=== PATIENT | male | born 1960 | race African-American/Black ===

== ENCOUNTER 2023-04-26 12:07 | Inpatient (IN) | payer OTHER ==
[2023-04-26 12:45] VITALS: BMI 25.9
[2023-04-26] MEDS ORDERED: BENZOCAINE/MENTHOL (CHLORASEPTIC ) LOZENGE MM PRN (14:35)
[2023-04-26] MEDS ORDERED: POLYETHYLENE GLYCOL (HEALTHYLAX) 3350 17 GM PACKET PO PRN (14:35)
[2023-04-26] MEDS ORDERED: IBUPROFEN 400 MG TABLET (FP) PO PRN (14:35)
[2023-04-26] MEDS ORDERED: MAGNESIUM HYDROX 2400MG/30ML ORAL SUSPENSION 30 ML CUP PO PRN (14:35)
[2023-04-26] MEDS ORDERED: BENZONATATE 200 MG CAPSULE PO PRN (14:35)
[2023-04-26] MEDS ORDERED: BISMUTH SUBSALICYLATE 262 MG/15 ML BTL PO PRN (14:35)
[2023-04-26] MEDS ORDERED: ACETAMINOPHEN 325 MG TABLET (FP) PO PRN (14:35)
[2023-04-26] MEDS ORDERED: ONDANSETRON *ODT* 4 MG TABLET SL PRN (14:35)
[2023-04-26] MEDS ORDERED: guaiFENesin 600 MG TABLET.ER (FP) PO PRN (14:35)
[2023-04-26] MEDS ORDERED: DICYCLOMINE HCL 10 MG CAPSULE PO PRN (14:35)
[2023-04-26] MEDS ORDERED: P-EPHED 60MG/TRIPROLIDI 2.5MG TABLET PO PRN (14:35)
[2023-04-26] MEDS ORDERED: LOPERAMIDE HCL 2 MG CAPSULE PO PRN (14:35)
[2023-04-26] MEDS: hydrOXYzine PAMOATE 25 MG CAPSULE (FP) PO PRN (15:27)
[2023-04-26] MEDS: THIAMINE HCL 100 MG TABLET (FP) PO SCH (22:16)
[2023-04-26] MEDS: MELATONIN 5 MG TABLETS PO SCH (22:16)
[2023-04-27] MEDS ORDERED: chlordiazePOXIDE HCL 25 MG CAPSULE PO PRN (09:26)
[2023-04-27] MEDS: PRENATAL VITAMINS W/ FOLIC ACID TABLET (FP) PO SCH (10:21)
[2023-04-27] MEDS: chlordiazePOXIDE HCL 25 MG CAPSULE PO SCH (10:22)
[2023-04-27 10:45] LABS: HEMATOCRIT 40.3 % (35.4-49); HEMOGLOBIN 13.2 GM/dL (11.7-16.9); MCH 28.4 pg (25.7-33.7); MCHC 32.7 g/dl (32.0-35.9); MEAN CELL VOLUME 86.7 fl (80-96); MEAN PLT VOLUME 9.1 fl (7.5-11.1); PLATELET COUNT 228 10^3/uL (134-434); RBC 4.65 M/mm3 (4.00-5.60); WHITE BLOOD COUNT 4.6 K/mm3 (4.0-10.0)
[2023-04-27 10:49] LABS: CHLORIDE 109 mmol/L (98-107); POTASSIUM 4.9 mmol/L (3.5-5.1); SODIUM 141 mmol/L (136-145)
[2023-04-27 11:04] LABS: GLUCOSE,RANDOM 90 mg/dL (74-106)
[2023-04-27 11:10] LABS: CALCIUM 8.9 mg/dL (8.5-10.1)
[2023-04-27 11:11] LABS: ANION GAP 5 mmol/L (4-13); BLOOD UREA NITROGEN 12.8 mg/dL (7-18); CO2 27 mmol/L (21-32)
[2023-04-27 11:13] LABS: SGPT/ALT 31 U/L (13-61); TOT PROT 7.6 g/dl (6.4-8.2)
[2023-04-27 11:14] LABS: ALK PHOS 77 U/L (45-117); CREATININE 0.8 mg/dL (0.55-1.3); SGOT/AST 23 U/L (15-37)
[2023-04-27 11:17] LABS: BILIRUBIN,TOTAL 0.4 mg/dL (0.2-1)
[2023-04-27] MEDS: PNEUMOC 20-VAL CONJ-DIP CRM/PF 0.5 ML SYRINGE IM ONE (11:34)
[2023-04-27] MEDS: FLU VACCINE (FLULAVAL) PF 60 MCG/0.5 ML SYRINGE 2023-2024 IM ONE (11:39)
[2023-04-27 11:40] LABS: HIV INTERPRETATION NEGATIVE (NEGATIVE)
[2023-04-27] MEDS: METHOCARBAMOL 500 MG TABLET PO PRN (22:43)
[2023-04-27] MEDS: IBUPROFEN 600 MG TABLET (FP) PO PRN (22:44)
[2023-04-28] MEDS: MAG HYDROX/AL HYDROX/SIMETH 30 ML UNIT-DOSE CUP PO PRN (14:13)
[2023-04-29] MEDS: chlordiazePOXIDE HCL 25 MG CAPSULE PO SCH (05:55)
[2023-04-29] MEDS: chlordiazePOXIDE HCL 10 MG CAPSULE PO SCH (17:31)
[2023-04-30] MEDS ORDERED: chlordiazePOXIDE HCL 10 MG CAPSULE PO PRN
[2023-04-30] MEDS: chlordiazePOXIDE HCL 10 MG CAPSULE PO SCH (05:30)
[2023-04-30 21:14] VITALS: RESP 18
[2023-05-01] MEDS: chlordiazePOXIDE HCL 10 MG CAPSULE PO SCH (05:51)
[2023-05-01 09:46] VITALS: BP 121/64; PULSE 73; TEMP 97.8
[2023-05-02] MEDS ORDERED: chlordiazePOXIDE HCL 10 MG CAPSULE PO ONE (05:00)
== END 2023-05-01 10:21 | disposition home or self-care (01) | DRG 774 ==
LOC: YASAS 12:07 → Y6N 14:48
PROVIDERS: ADMIT Allergy & Immunology; ATTEND Allergy & Immunology
PROC: HZ2ZZZZ Detoxification Services for Substance Abuse Treatment (ICD-10-PCS; principal; 2023-04-26)
DX: F10.230 Alcohol dependence with withdrawal, uncomplicated (principal); F14.20 Cocaine dependence, uncomplicated; F12.20 Cannabis dependence, uncomplicated; F17.210 Nicotine dependence, cigarettes, uncomplicated; F19.282 Other psychoactive substance dependence with psychoactive substance-induced sleep disorder; F19.24 Other psychoactive substance dependence with psychoactive substance-induced mood disorder; N40.0 Benign prostatic hyperplasia without lower urinary tract symptoms; Z56.0 Unemployment, unspecified
CPT/HCPCS: 0241U-QW; 36415; 80053; 80307; 85027; 86780; 87389; 87635; 87811; 90677; 90686; 93005; 93010; G0008